=== PATIENT | male | born 1960 | race Caucasian/White ===

== ENCOUNTER 2020-11-18 15:52 | Emergency (ER) | payer OTHER ==
[2020-11-18 16:02] VITALS: BP 157/92; PULSE 76; RESP 16; TEMP 98
[2020-11-18] MEDS ORDERED: SODIUM CHLORIDE 0.9% 1,000 ML IV STA (16:31)
[2020-11-18] MEDS ORDERED: MORPHINE SULFATE 4 MG/ML SYRINGE IVP STA (16:31)
--- NOTE | 2020-11-18 16:55 | XR ---
EXAMINATION TYPE: XR toes LT DATE OF EXAM: 11/18/2020 COMPARISON: None. HISTORY: Suspected osteomyelitis. TECHNIQUE: 3 views of the left great toe were obtained. No prior similar imaging is available for honorio martines. FINDINGS: No fracture or dislocation. No significant erosive changes or periosteal reaction to suggest osteomye litis. No radiographic evidence of soft tissue erosions. IMPRESSION: No radiographic evidence of ostomy myelitis. Please correlate clinically.
--- NOTE | 2020-11-18 16:56 | ED ---
Skin/Abscess/FB HPI - General Chief complaint: Skin/Abscess/Foreign Body Stated complaint: Black foot Time Seen by Provider: 11/18/20 16:19 Source: patient, family, RN notes reviewed Mode of arrival: wheelchair Limitations: no limitations - History of Present Illness Initial comments: Patient is a 60-year-old male that presents to emergency room with left great toe pain. He notes that he saw a mine motor engineer approximately one month ago for treatment of an ingrown toenail. He notes that he took antibiotics but was still low but red and irritated. He notes that a friend gave him an 8 day supply of Keflex that he took 3 times a day. He notes that he's also been putting bacitracin and hydrogen peroxide on it still. He notes that since she started putting hydrogen peroxide is totally became worse, the skin turned black and the pain has increased. He notes that he is not follow-up with a doctor in many years and is like him the emergency room a few times for the flu and stitches. He stated at rest his toe did not hurt at the moment. He denied any numbness tingling decreased sensation in his left great toe. He denied any chest pain short of breath headache nausea vomiting diarrhea constipation fever fatigue chills. - Related Data Home Medications Medication Instructions Recorded Confirmed Bacitracin Zinc Oint 1 applic TOPICAL BID PRN 11/18/20 11/18/20 Ibuprofen [Motrin Ib] 400 mg PO Q8H PRN 11/18/20 11/18/20 Neomycin/Bacitracin/Polymyxinb 1 applic TOPICAL BID 11/18/20 11/18/20 [Neosporin Ointment] Previous Rx's Medication Instructions Recorded Amoxicillin/Potassium Clav 1 tab PO Q12HR #20 tab 11/18/20 [Augmentin 875-125 Tablet] Allergies Allergy/AdvReac Type Severity Reaction Status Date / Time No Known Allergies Allergy Verified 11/18/20 17:34 Review of Systems ROS Statement: Those systems with pertinent positive or pertinent negative responses have been documented in the HPI. ROS Other: All systems not noted in ROS Statement are negative. Past Medical History Past Medical History: No Reported History History of Any Multi-Drug Resistant Organisms: None Reported Past Surgical History: No Surgical Hx Reported Past Psychological History: No Psychological Hx Reported Smoking Status: Current every day smoker Past Alcohol Use History: Rare Past Drug Use History: Marijuana General Exam Limitations: no limitations General appearance: alert, in no apparent distress Head exam: Present: atraumatic, normocephalic, normal inspection Eye exam: Present: normal appearance, PERRL, EOMI. Absent: scleral icterus, conjunctival injection, periorbital swelling Neck exam: Present: normal inspection Respiratory exam: Present: normal lung sounds bilaterally. Absent: respiratory distress, wheezes, rales, rhonchi, stridor Cardiovascular Exam: Present: regular rate, normal rhythm, normal heart sounds. Absent: systolic murmur, diastolic murmur, rubs, gallop, clicks GI/Abdominal exam: Present: soft, normal bowel sounds. Absent: distended, tenderness, guarding, rebound, rigid Extremities exam: Present: normal inspection, full ROM, normal capillary refill, other (He'll aspect of the left great toe black necrotic tissue). Absent: tenderness, pedal edema, joint swelling, calf tenderness Left Foot/Toe exam: Present: full ROM. Absent: normal inspection Neurological exam: Present: alert, oriented X3, CN II-XII intact Psychiatric exam: Present: normal affect, normal mood Skin exam: Present: warm, dry, intact, normal color. Absent: rash Course Vital Signs 11/18/20 15:59 Temperature 98 F Pulse Rate 76 Respiratory 16 Rate Blood Pressure 157/92 O2 Sat by Pulse 99 Oximetry Medical Decision Making - Medical Decision Making 60-year-old male complaining of left great toe pain after several rounds of antibiotics status post ingrown toenail procedure. Labs, 1 L normal saline, 4 mg of morphine, x-ray of the left foot ordered. Labs unremarkable, slightly elevated white count at 12.5. Case discussed with Dr. El, patient discharge home with follow-up to mine motor engineer and antibiotics. - Lab Data Result diagrams: 11/18/20 17:06 11/18/20 17:06 Lab Results 11/18/20 11/18/20 11/18/20 Range/Units 17:06 17:06 17:06 WBC 12.4 H (3.8-10.6) k/uL RBC 5.41 (4.30-5.90) m/uL Hgb 16.4 (13.0-17.5) gm/dL Hct 50.0 (39.0-53.0) % MCV 92.4 (80.0-100.0) fL MCH 30.3 (25.0-35.0) pg MCHC 32.8 (31.0-37.0) g/dL RDW 13.0 (11.5-15.5) % Plt Count 443 (150-450) k/uL MPV 6.5 Neutrophils % 66 % Lymphocytes % 25 % Monocytes % 6 % Eosinophils % 1 % Basophils % 1 % Neutrophils # 8.2 H (1.3-7.7) k/uL Lymphocytes # 3.1 (1.0-4.8) k/uL Monocytes # 0.7 (0-1.0) k/uL Eosinophils # 0.2 (0-0.7) k/uL Basophils # 0.1 (0-0.2) k/uL ESR 28 H (0-15) mm/hr PT 10.8 (9.0-12.0) sec INR 1.0 (<1.2) APTT 24.7 (22.0-30.0) sec Sodium 137 (137-145) mmol/L Potassium 5.1 (3.5-5.1) mmol/L Chloride 104 (98-107) mmol/L Carbon Dioxide 25 (22-30) mmol/L Anion Gap 8 mmol/L BUN 11 (9-20) mg/dL Creatinine 0.86 (0.66-1.25) mg/dL Est GFR (CKD-EPI)AfAm >90 (>60 ml/min/1.73 sqM) Est GFR (CKD-EPI)NonAf >90 (>60 ml/min/1.73 sqM) Glucose 92 (74-99) mg/dL Plasma Lactic Acid Maldonado (0.7-2.0) mmol/L Calcium 10.2 (8.4-10.2) mg/dL Total Bilirubin 0.4 (0.2-1.3) mg/dL AST 24 (17-59) U/L ALT 18 (4-49) U/L Alkaline Phosphatase 120 (38-126) U/L C-Reactive Protein 1.7 H (<1.0) mg/dL Total Protein 7.7 (6.3-8.2) g/dL Albumin 4.5 (3.5-5.0) g/dL 05/14/21 Range/Units 17:06 WBC (3.8-10.6) k/uL RBC (4.30-5.90) m/uL Hgb (13.0-17.5) gm/dL Hct (39.0-53.0) % MCV (80.0-100.0) fL MCH (25.0-35.0) pg MCHC (31.0-37.0) g/dL RDW (11.5-15.5) % Plt Count (150-450) k/uL MPV Neutrophils % % Lymphocytes % % Monocytes % % Eosinophils % % Basophils % % Neutrophils # (1.3-7.7) k/uL Lymphocytes # (1.0-4.8) k/uL Monocytes # (0-1.0) k/uL Eosinophils # (0-0.7) k/uL Basophils # (0-0.2) k/uL ESR (0-15) mm/hr PT (9.0-12.0) sec INR (<1.2) APTT (22.0-30.0) sec Sodium (137-145) mmol/L Potassium (3.5-5.1) mmol/L Chloride (98-107) mmol/L Carbon Dioxide (22-30) mmol/L Anion Gap mmol/L BUN (9-20) mg/dL Creatinine (0.66-1.25) mg/dL Est GFR (CKD-EPI)AfAm (>60 ml/min/1.73 sqM) Est GFR (CKD-EPI)NonAf (>60 ml/min/1.73 sqM) Glucose (74-99) mg/dL Plasma Lactic Acid Maldonado 0.9 (0.7-2.0) mmol/L Calcium (8.4-10.2) mg/dL Total Bilirubin (0.2-1.3) mg/dL AST (17-59) U/L ALT (4-49) U/L Alkaline Phosphatase (38-126) U/L C-Reactive Protein (<1.0) mg/dL Total Protein (6.3-8.2) g/dL Albumin (3.5-5.0) g/dL - Radiology Data Radiology results: report reviewed, image reviewed Left great toe x-ray: No radiographic evidence of ostomy myelitis. Please correlate clinically. Disposition Clinical Impression: Abrasion of great toe, left, infected Disposition: HOME SELF-CARE Condition: Stable Instructions (If sedation given, give patient instructions): Metatarsalgia (DC) Additional Instructions: Please return to the Emergency Department if symptoms worsen or any other concerns. Continue take, Motrin for pain. Take antibiotics as prescribed until complete area (Follow-up with [facility]dramatic Specialist as soon as possible. Avoid the use of hydrogen peroxide on open tissue. If any numbness tingling, losing, increased pain or spreading of redness heat tenderness please return. Is patient prescribed a controlled substance at d/c from ED?: No Referrals: None,Stated [Primary Care Provider] - 1-2 days Time of Disposition: 18:36
[2020-11-18 17:30] LABS: Basophils # (A) 0.1 k/uL (0-0.2); Basophils % (A) 1 %; Eosinophils # (A) 0.2 k/uL (0-0.7); Eosinophils % (A) 1 %; HGB 16.4 gm/dL (13.0-17.5); Lymphocytes # (A) 3.1 k/uL (1.0-4.8); Lymphocytes % (A) 25 %; MCH 30.3 pg (25.0-35.0); MCHC 32.8 g/dL (31.0-37.0); MCV 92.4 fL (80.0-100.0); Mean Platelet Volume 6.5; Monocytes # (A) 0.7 k/uL (0-1.0); Monocytes % (A) 6 %; Neutrophils # (A) 8.2 k/uL (1.3-7.7); Neutrophils % (A) 66 %; Platelet Count 443 k/uL (150-450); RBC 5.41 m/uL (4.30-5.90); WBC 12.4 k/uL (3.8-10.6)
[2020-11-18 17:37] LABS: Partial Thromboplastin Time 24.7 sec (22.0-30.0); Prothrombin Time 10.8 sec (9.0-12.0)
[2020-11-18 17:42] LABS: ALT 18 U/L (4-49); AST 24 U/L (17-59); African American GFR (CKD) >90 (>60 ml/min/1.73 sqM); Albumin 4.5 g/dL (3.5-5.0); Alkaline Phosphatase 120 U/L (38-126); Anion Gap 8 mmol/L; Blood Urea Nitrogen 11 mg/dL (9-20); C Reactive Protein 1.7 mg/dL (<1.0); Calcium 10.2 mg/dL (8.4-10.2); Carbon Dioxide 25 mmol/L (22-30); Chloride 104 mmol/L (98-107); Glucose 92 mg/dL (74-99); Non-African American GFR(CKD) >90 (>60 ml/min/1.73 sqM); Potassium 5.1 mmol/L (3.5-5.1); Sodium 137 mmol/L (137-145); Total Bilirubin 0.4 mg/dL (0.2-1.3); Total Protein 7.7 g/dL (6.3-8.2)
[2020-11-18 18:19] LABS: Erythrocyte Sedimentation Rate 28 mm/hr (0-15)
[2020-11-18] MEDS ORDERED: ACET/COD 300 MG/30 MG STARTER PACK 6 TAB BTL PO STA (18:35)
== END 2020-11-18 19:03 | disposition home or self-care (01) ==
LOC: EC 15:52
DX: S90.412A Abrasion, left great toe, initial encounter (principal); F17.200 Nicotine dependence, unspecified, uncomplicated; F12.90 Cannabis use, unspecified, uncomplicated; Z79.1 Long term (current) use of non-steroidal anti-inflammatories (NSAID); X58.XXXA Exposure to other specified factors, initial encounter
CPT/HCPCS: 36415; 80053; 85652; 83605; 85025; 85610; 85730; 86140; 73660; 99283; 96374; J2270